=== PATIENT | male | born 1965 | race Caucasian/White ===

== ENCOUNTER 2017-04-22 10:33 | Emergency (ER) | payer OTHER ==
[~2017-04-22] VITALS: Ht 180.3 cm; Wt 95.5 kg
[2017-04-22 10:36] VITALS: BP 145/86; PULSE 118; RESP 20; O2SAT 100
--- NOTE | 2017-04-22 11:11 | ED.REPORT ---
HPI-Back Pain 40 and Over Date of Service Apr 22, 2017 ED Provider: History of Present Illness: right upper back pain started about 10 days ago. no primary care. 05/25 pain, tried ice, went to urgent care times 2 given prednisone. movement makes it worse. does IT. Right hand dominant. no increase in hours, not working at present. last work 03/2016 Nursing Notes Stated Complaint: ACUTE BACK PAIN Chief Complaint: Back Pain or Injury Nursing Notes Reviewed: Yes Allergies: Coded Allergies: propranolol (Verified Adverse Reaction, Severe, hypotensive, 04/22/17) General Time Seen by MD: 11:10 Chief Complaint Back pain Hx Obtained From: Patient Sudden in Onset?: No Caused by: Spontaneous/no mechanism Severity: Current: Pain level 10 out of 10 Past Medical History Past Medical History Denies: Asthma, Hypertension Past Surgical History ankle, nose Smoking History Never Smoker Social History Alcohol Use: Denies alcohol use Drug Use: THC (uses for low back pain) Occupation lives with , no work or school at present 04/22/2017 Ambulatory Status Independent Review of Systems Basic Review of Systems Eyes: Vision NL, No discharge Hematologic: No bleeding, No bruising Psychiatric: Normal thought content Physical Exam Initial Vital Signs Vital Signs (First) Date Time Temp Pulse Resp B/P Pulse Ox O2 Delivery O2 Flow Rate FiO2 04/22/17 10:36 37 118 20 145/86 100 Room Air Initial VS: Reviewed, Vital signs abnormal Head / Eyes: Atraumatic, Normocephalic, PERRL Lymphatic: No lymphadenopathy Psychiatric: Mood/affect normal, Behavior normal, Normal thought content General/Constitutional: Awake, Alert, No acute distress, Well appearing, Well developed, Well hydrated Respiratory / Chest: Atraumatic, Breath sounds NL, Breath sounds = bilat, No respiratory distress, No rales, No rhonchi, No wheezing, No retractions Cardiovascular: Heart rate NL, Regular rhythm, Heart sounds NL, No gallop, No murmurs, No rubs Abdomen: Atraumatic, Soft, Non-tender patient with tender to touch on right upper back. patient with slight difference in muscle strength on right side. no obvious muscle wasting. no rash no increase inwarmth Neurologic: Oriented X3, Speech NL, No motor deficits, No sensory deficits Re-Eval/Medical Decision Med Decision/Clinical Course reviewed x-rays taken previously, indicate arthritis. No sign of septic arthrits or spinal mass. Encouraged follow up with neurosurgery. 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 The question is, is surgery indicated? that question is best answered by a neurosugeon. Dr. Esdras Miles is one of the neurosurgeons in [place]. Phone number is [phone]. A list of others is provided. Please check with your insurance to see if a referral is needed. Please start a steroid taper, 60 mg daily for 5 days, then 50 mg daily for 5 days then 40 mg daily for 5 days. Then 30 mg daily for 5 days, then 20 mg daily for 5 days then 10 mg daily for 5 days. Please use ice to the site, 15 minutes on and 15 minutes off. Need to have a cloth barrier between the ice and your skin. Take omeprazole while taking steroids. You can use hydrocodone 5/325 1 at night if needed for severe unrelenting pain. You can also use visteral 50 mg up to 3 times a day as needed for muscle relaxation. I am sorry this is happening Referrals: NOPCP (PCP) EDSupervising Provider for [facility]: Chauncey Sánchez DO copies to: OTHER,PHYSICIAN Lupe Vega Apr 22, 2017 11:11
[2017-04-22 12:26] VITALS: BP 141/90; PULSE 117; O2SAT 98
[2017-04-22 12:27] VITALS: BP 141/90; PULSE 117; RESP 20; O2SAT 98
== END 2017-04-22 12:20 | disposition home or self-care (01) ==
LOC: SED 10:33
DX: M54.6 Pain in thoracic spine (principal); Z88.8 Allergy status to other drugs, medicaments and biological substances
CPT/HCPCS: 96372; 99283; J1885